=== PATIENT | male | born 1970 | race Caucasian/White ===

== ENCOUNTER 2022-05-16 10:19 | Outpatient (CLI) | payer OTHER, SELFPAY ==
[2022-05-16 14:33] LABS: Chloride* 100 mmol/L (96-114); Potassium* 4.3 mmol/L (3.6-5.1); Sodium* 138 mmol/L (135-149)
[2022-05-16 14:35] LABS: Cholesterol* 200 mg/dL (90-199); Estimated Glomerular Filt Rate 91 ml/min
[2022-05-16 14:36] LABS: Blood Urea Nitrogen* 16 mg/dL (7-30); Calcium* 9.6 mg/dL (8.4-10.6); Carbon Dioxide* 28 mmol/L (20-32); Glucose* 179 mg/dL (60-115); HDL Cholesterol* 31 mg/dL (>=40); LDL Cholesterol Calculated 81 mg/dL (<100)
[2022-05-16 14:59] LABS: PSA Screen* 0.42 ng/mL (0.10-4.00)
[2022-05-16 15:06] LABS: Triglycerides* 441 mg/dL (40-149)
[2022-06-18 09:24] LABS: Hemoglobin A1C* 6.89 % (0-5.6)
== END 2022-05-16 10:20 | disposition home or self-care (01) ==
PROVIDERS: PCP Family Medicine; Visit Provider Family Medicine
DX: I10 Essential (primary) hypertension (principal); E78.5 Hyperlipidemia, unspecified; Z12.5 Encounter for screening for malignant neoplasm of prostate; R73.9 Hyperglycemia, unspecified
CPT/HCPCS: 80048; 80061; 84153

== ENCOUNTER 2022-06-18 09:04 | Outpatient (CLI) | payer OTHER, SELFPAY | END 2022-06-18 09:05 | disposition home or self-care (01) | LOC: FBOREF 06-21 09:26 | PROVIDERS: PCP Family Medicine; Visit Provider Family Medicine | DX: R73.09 Other abnormal glucose (principal); I10 Essential (primary) hypertension; E78.5 Hyperlipidemia, unspecified | CPT/HCPCS: 83036 ==

== ENCOUNTER 2022-09-21 08:00 | Outpatient (CLI) | payer OTHER, SELFPAY ==
[2022-09-21 11:36] LABS: Cholesterol* 200 mg/dL (90-199)
[2022-09-21 11:37] LABS: HDL Cholesterol* 30 mg/dL (>=40); LDL Cholesterol Calculated 114 mg/dL (<100); Triglycerides* 280 mg/dL (40-149)
== END 2022-09-21 08:01 | disposition home or self-care (01) ==
LOC: NFLDREF 08:01
PROVIDERS: PCP Family Medicine; Visit Provider Family Medicine
DX: E78.5 Hyperlipidemia, unspecified (principal)
CPT/HCPCS: 80061

== ENCOUNTER 2023-07-01 09:08 | Outpatient (CLI) | payer OTHER, SELFPAY ==
[2023-07-01 10:02] LABS: Cholesterol* 207 mg/dL (90-199); HDL Cholesterol* 35 mg/dL (>=40); LDL Cholesterol Calculated 79 mg/dL (<100)
[2023-07-01 10:07] LABS: Triglycerides* 463 mg/dL (40-149)
[2023-07-04 08:18] LABS: Chloride* 99 mmol/L (96-114); Potassium* 4.1 mmol/L (3.6-5.1); Sodium* 139 mmol/L (135-149)
[2023-07-04 08:21] LABS: Anion Gap 11 mEq/L (7-15); Carbon Dioxide* 29 mmol/L (20-32); Creatinine* 0.8 mg/dL (0.5-1.5); Estimated Glomerular Filt Rate 106 ml/min
[2023-07-04 08:22] LABS: Blood Urea Nitrogen* 16 mg/dL (7-30); Glucose* 122 mg/dL (60-115)
== END 2023-07-01 09:09 | disposition home or self-care (01) ==
PROVIDERS: PCP Family Medicine; Visit Provider Family Medicine
DX: E78.5 Hyperlipidemia, unspecified (principal); Z11.9 Encounter for screening for infectious and parasitic diseases, unspecified; Z13.9 Encounter for screening, unspecified
CPT/HCPCS: 36415; 80048; 80061; 86480

== ENCOUNTER 2023-08-21 08:29 | Day surgery (SDC) | payer OTHER, SELFPAY ==
[2023-08-21] VITALS (7 sets, daily range): BP systolic 123–140; BP diastolic 72–92; PULSE 62–68; RESP 16; TEMP 36.5; O2SAT 97–99
[2023-08-21] MEDS: BUPIVACAINE 0.5% 30 ML INJECTION (09:00)
[2023-08-21] MEDS: NEOMYCIN/BACITRACIN/POLYMYXIN B 1 APPLIC TOPICAL (09:32)
--- NOTE | 2023-08-21 09:37 | P.ORPRC_ITS ---
Procedure Note Date of procedure: 08/21/23 Procedure: PREOPERATIVE DIAGNOSIS: 1. Right recurrent carpal tunnel syndrome POSTOPERATIVE DIAGNOSIS: 1. Right recurrent carpal tunnel syndrome PROCEDURE: 1. Right revision open carpal tunnel release SURGEON: Jayden Greene MD. RAWHIDE BONE ROLLER: Wenceslao Gonzalez PA-C ANESTHESIA: Local anesthetic (50:50 mixture of 2 % lidocaine with epi and 0.5% marcaine plain) - 10ml total IMPLANTS: None EBL: 2 mL TOURNIQUET: None COMPLICATIONS: None evident INDICATIONS: The patient is a pleasant 52-year-old male who underwent right endoscopic carpal tunnel release approximately 2004. He had good resolution of symptoms initially. Unfortunately, his symptoms have returned. He now experiences right hand numbess/tingling affecting the radial 3.5 digits for multiple months, especially the thumb and near complete numbness of the thumb tip continuously. It has progressively gotten worse. Nonoperative management has been tried and failed, and therefore surgery was recommended. DESCRIPTION OF PROCEDURE: Following a thorough discussion of risks, benefits, and alternatives consent was obtained and the operative extremity was marked. The patient was brought to the operating room and placed supine on the operating table. Local anesthesia induction was undertaken in preop holding. No antibiotics were administered as this was planned to be a local case only. Proper time-out was performed identifying proper patient, site, and procedure. The operative extremity was prepped and draped in the appropriate sterile fashion using ChloraPrep. Of note, the previous endoscopic transverse incision through the distal wrist crease appeared healthy without disruption. An incision was made in line with the radial border of the ring finger beginning 1 cm distal to the distal wrist crease and progressing for another 2.5cm distal. Caution was taken to stay proximal to Acosta's cardinal line. Sharp incision through the skin, subcutaneous tissue, and palmar fascia was performed. The thenar musculature was bluntly elevated off the transverse carpal ligament. The ligament was directly visualized, and divided sharply with a 15 blade. This was released from its most proximal to the most distal extent. Metzenbaum scissor was also utilized to release the fascia extension proximally. For this part had extra thickened tissue consistent with the previous surgery. We confirmed complete release of the transverse carpal ligament. Closure was performed with 4-O nylon in interrupted fashion. Soft dressings were applied, and the patient was transferred to the recovery room in stable condition. PLAN: 1. Encourage elevation of the operative extremity. 2. Range of motion of the fingers and hand/wrist as tolerated. 3. Ibuprofen/acetaminophen as needed for pain control. 4. Follow up with PA visit or nurse visit in 12-16 days for wound check and suture removal.
== END 2023-08-21 09:55 | disposition home or self-care (01) ==
PROVIDERS: PCP Family Medicine; Visit Provider Orthopaedic Surgery Sports Medicine
PROC: (CPT 64721; principal; 2023-08-21 09:30)
DX: G56.01 Carpal tunnel syndrome, right upper limb (principal)
CPT/HCPCS: 64721; J0665

== ENCOUNTER 2024-03-30 08:19 | Outpatient (CLI) | payer OTHER, SELFPAY | END 2024-03-30 08:20 | disposition home or self-care (01) | PROVIDERS: PCP Family Medicine; Visit Provider Family Medicine | DX: Z01.84 Encounter for antibody response examination (principal) | CPT/HCPCS: 86706; 86735; 86762; 86765 ==

== ENCOUNTER 2024-06-24 07:05 | Outpatient (CLI) | payer OTHER, SELFPAY ==
--- NOTE | 2024-06-24 07:15 | MR_ITS ---
[address] [address] Phone:?[phone] Fax:?[phone] Referring Physician Information: Alf Jhaveri M.D. [address] [facility] [address] Phone:?[phone] Fax:?[phone] Patient:AriesRuyd Moura D.O.B:?1970 Sex:?Male Phone:?[phone] [facility] MRN:?[id number] Exam Date:?06/24/2024 EXAM: MRI of the LEFT KNEE, without contrast CLINICAL HISTORY: Ongoing left knee pain. Evaluate for medial meniscal tear and impingement. COMPARISONS: MRI 05/25/2015. TECHNICAL: MR sequences of the left knee: sagittals: PD, PDFS coronals: PD, STIR axials: PD, T2 FS CONTRAST: None SEDATION: None FINDINGS: Bones: No fracture, bone marrow contusion, or other suspicious bone marrow signal abnormality. 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 Extensive grade II chondromalacia over the patella, mildly to moderately progressed compared to previous MRI 05/25/2015. Retinacula: The medial and lateral retinacula are intact. Fat pads: The infrapatellar, quadriceps, and prefemoral fat pads are unremarkable. Knee joint: Effusion: Physiologic amount of joint fluid. Popliteal cyst: None. Intra-articular bodies: None. Posteromedial corner: The semimembranosus and pes anserine tendons are intact. Medial compartment: Medial meniscus: Intact. Cartilage: 1.5 x 1.5 cm area of grade II to III chondromalacia over the weight- bearing portion of the medial femoral condyle, mildly to moderately progressed compared to previous MRI 05/25/2015. Lateral compartment: Lateral meniscus: Intact. Cartilage: 1.0 cm in AP dimension by 0.3 cm in transverse dimension area of near full-thickness chondral loss over the posterior weightbearing portion of the lateral femoral condyle, new compared to previous MRI 05/25/2015. Ligaments: Anterior cruciate ligament: Intact. Posterior cruciate ligament: Intact. Medial collateral ligament: Intact. Posterior oblique ligament: Intact. Fibular collateral ligament: Intact. Posterolateral corner: The distal biceps femoris tendon, iliotibial band, popliteus tendon, popliteus muscle, popliteofibular ligament, and arcuate ligament are intact. Extensor mechanism: Patellar tendon: Intact. Quadriceps tendon: Intact. IMPRESSION: 1. 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 Extensive grade II chondromalacia over the patella, mildly to moderately progressed compared to previous MRI 05/25/2015. 2. 1.5 x 1.5 cm area of grade II to III chondromalacia over the weight-bearing portion of the medial femoral condyle, mildly to moderately progressed compared to previous MRI 05/25/2015. 3. 1.0 x 0.3 cm area of near full-thickness chondral loss over the posterior weightbearing portion of the lateral femoral condyle, new compared to previous MRI 05/25/2015. 4. No ligamentous or meniscal pathology of the left knee. RCB Electronically signed on 06/30/2024 11:25:00 AM by Ron Mcguire M.D.
== END 2024-06-24 07:06 | disposition home or self-care (01) ==
LOC: MRI 07:06
PROVIDERS: PCP Family Medicine; Visit Provider Orthopaedic Surgery
DX: M25.562 Pain in left knee (principal); M22.42 Chondromalacia patellae, left knee
CPT/HCPCS: 73721

== ENCOUNTER 2024-12-29 15:26 | Outpatient (CLI) | payer OTHER, SELFPAY | END 2024-12-29 15:27 | disposition home or self-care (01) | LOC: FBOREF 15:28 | PROVIDERS: PCP Family Medicine; Visit Provider Family Medicine | DX: E78.5 Hyperlipidemia, unspecified (principal); I10 Essential (primary) hypertension; E11.9 Type 2 diabetes mellitus without complications; Z12.5 Encounter for screening for malignant neoplasm of prostate | CPT/HCPCS: 80048; 80061; 84460; 85025; G0103 ==

== ENCOUNTER 2025-04-11 10:21 | Emergency (ER) | payer OTHER, SELFPAY ==
[2025-04-11] VITALS (10 sets, daily range): BP systolic 90–129; BP diastolic 55–84; PULSE 60–68; RESP 8–21; TEMP 36.8; O2SAT 93–98; BMI 30.7
--- OUTSIDE RECORDS SUMMARY | 2025-04-11 10:23 | XMS_ITS | Clinical Summary ---
Author Organization [facility] Address [facility] [place] [address] Care Team Providers Care Pipe Layer Name Role Phone New Palacio MD Primary Care Provider + Allergies Active Allergy Reactions Criticality Noted Date Comments Cefazolin Anaphylaxis 07/11/2009 Medications cetirizine (ZYRTEC) 10 mg tabletIndications :seasonal allergic rhinitis Take 10 mg by mouth once daily. Indications: SEASONAL ALLERGIC RHINITIS Active omeprazole (PRILOSEC) 20 mg Delayed-Release capsule Take 1 capsule by mouth 2 times daily before meals. 200 capsule 4 03/25/2015 10:30 AM CDT 5 Active losartan-hydrochl orothiazide (HYZAAR) 100-12.5 mg tabletIndications :Hypertension TAKE 1 TABLET BY MOUTH EVERY DAY 90 tablet 8 Active clobetasol 0.05% (TEMOVATE 0.05% OINTMENT) 0.05 % ointmentIndicatio ns:Lichen planus Apply topically to affected area(s) 2 times daily. 1 Tube 1 8 Active amLODIPine (NORVASC) 5 mg tabletIndications :Essential hypertension Take 1 tablet by mouth once daily. 30 tablet 12 8 Active Active Problems Problem Noted Date Diagnosed Date Hypertension 03/27/2017 Acid reflux 08/17/2014 Esophageal dysphagia 08/17/2014 Umbilical hernia 07/27/2011 Carpal tunnel syndrome 07/11/2009 Hyperlipidemia 07/11/2009 Resolved Problems Problem Noted Date Diagnosed Date Resolved Date Elevated BP 07/27/2011 03/27/2017 Immunizations Immunization Administration Dates Next Due MMR 10/16/1991 Td (Age >=7 Years) 08/26/2000,10/16/1991 Tdap 07/27/2011 Yellow Fever 07/24/2011 Family History Medical History Relation Name Comments Hyperlipidemia Brother 2 Matt Hypertension Brother 2 Matt Diabetes Father Lei Hypertension Father Lei Heart Disease Paternal Grandfather Diabetes Paternal Grandmother Relation Name Status Comments Brother 1 Alive x2 Brother 2 Matt Father Lei Alive Maternal Grandfather Maternal Grandmother Mother Alive Paternal Grandfather Alive Paternal Grandmother Social History Tobacco Use Types Packs/Day Years Used Date Smoking Tobacco: Never Smokeless Tobacco: Never Alcohol Use Standard Drinks/Week Comments Yes 0 (1 standard drink = 0.6 oz pur e alcohol) Social Sex and Gender Information Value Date Recorded Sex Assigned at Not on file 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 Gender Identity Not on file Sexual Orientation Not on file Occupation Industry Job Start Date Job End Date [employer] Not on file Not on file Not on file Obstetrics History Last Filed Vital Signs Vital Sign Reading Time Taken Comments Blood Pressure 140/80 08/04/2018 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 Pulse 64 08/04/2018 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 Temperature 36.4 C (97.6 F) 08/04/2018 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 Respiratory Rate 16 08/04/2018 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 Oxygen Saturation 99% 08/05/2014 1:20 PM MULCHER OPERATOR Inhaled Oxygen Concentration - - Weight 110 kg (242 lb 9.6 oz) 08/04/2018 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 Height 180.3 cm (5' 11) 08/04/2018 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 Body Mass Index 33.84 08/04/2018 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 Plan of Treatment Health Maintenance Due Date Last Done Comments HIV for age 15-65 1985 Hepatitis C screening for age 18-79 1988 Hepatitis B series for 19+ ( 1 of 3 - 19+ 3-dose series) 1989 Colonoscopy through age 75 2015 Depression screening for age 12+ 03/22/2018 03/22/20 17 BMI (ht and wt on same day) for age 18+ 08/04/2019 08/04/2018, 03/22/2017 Pneumococcal series for age 50+ (1 of 1 - PCV) 2020 Zoster (shingles) series for age 50+ (1 of 2) 2020 Tetanus booster 07/27/2021 07/27/2011, 08/2000, 10/16/1991 Lipids for age 45-75 03/22/2022 03/22/2017, 07/11/20 09 COVID-19 vaccine series (1 - 2023- season) 2024 Influenza Vaccine (#1) 2025 Procedures Procedure Name Priority Date/Time Associated Diagnosis Comments LIPID PANEL W REFLEX MEASURED LDL Routine 03/22/2017 10:07 AM CDT Hypertension from Last 3 Months or Most Recently Relevant to Health Maintenance Results * (ABNORMAL) LIPID PANEL W REFLEX MEASURED LDL (03/22/2017 10:07 AM CDT) CHOLESTEROL,TOTAL 212(H) 100 - 199 mg/dL 03/22/2017 11:14 AM CDT [facility] TRIGLYCERIDES 349(H) <150 mg/dL 03/22/2017 11:14 AM CDT [facility] HDL CHOLESTEROL 32(L) >40 mg/dL 7 11:14 AM CDT [facility] NON-HDL CHOLESTEROL 180(H) <145 mg/dl 03/22/2017 11:14 AM CDT [facility] CHOL/HDL RATIO 6.63(H) <4.50 03/22/2017 11:14 AM CDT [facility] LDL CHOLESTEROL 110 <=130 mg/dL 03/22/2017 11:14 AM CDT [facility] PATIENT STATUS NOT GIVEN 03/22/2017 11:14 AM CDT [facility] Blood BLOOD SPECIMEN / Unknown Venipuncture / Unknown 03/22/2017 10:07 AM CDT 03/22/2017 10:07 AM CDT us New Palacio MD CHEMISTRY Final Re sult [facility] [address] [place] [address] from Last 3 Months or Most Recently Relevant to Health Maintenance Insurance [address] [id number] [address] [id number] [place] [address] WORK[employer] Advance Directives * Full Code (Latest Code Status on File) Date Activated Date Inactivated Comments 08/05/2014 11:43 AM 08/05/2014 4:17 PM Care Teams Pipe Layer Relationship Specialty Start Date End Date New Palacio MD [address] [place] [address] PCP - General Family Practice 09/26/22
--- NOTE | 2025-04-11 10:24 | ED_ITS ---
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 He was found lying in the hallway. He is pale and diaphoretic. He has a past medical history of GERD, hyperlipidemia, hypertension, type 2 diabetes per his medical record. Per medical record current medications include aspirin 81 mg, losartan/hydrochlorothiazide, metformin, rosuvastatin, doctors epic tide, omeprazole, cetirizine. 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 He was on due to this morning. He recalls being in his usual state of health lately. No new medications. No recent illnesses. No vomiting or diarrhea. This morning he wa s in the bathroom and had a large satisfactory bowel movement that was not black or bloody. While on the toilet he did start to feel a little bit lightheaded and felt like his heart was racing. He was worried he might pass out so he got off the toilet she tried to get out into the hallway to get someone to help him out. He recalls moving on in the hallway. He thinks his heart was probably racing but he was not sure if he was able to count his pulse or not. The next thing he recalls is waking up on the floor. He knows that he had fallen because some of the items in his pocket had fallen out. However he was not injured in the fall. He had no other symptoms. No chest pain. No shortness of breath. No back pain. He has no recent swelling in his legs. No abdominal pain. He has no r ecent black or bloody stools. No recent fever or illnesses. He has no pain or injury from the fall. No signs of head trauma. No headache. No facial or dental trauma. He did not bite his tongue. He was not incontinent of urine or stool. He has no other injury or bruises from falling. He was noted to be pale by nursing staff when he 1st was in the hallway but now that he is here in the ER his color has returned he feels completely back to normal. Related Data Home Medications ?Medication ?Instructions ?Recorded ?Confirmed aspirin 81 mg tablet,delayed 81 mg PO QDAY 05/16/22 release cetirizine 10 mg tablet (Zyrtec) 10 mg PO QDAY 4 12/29/24 Previous Rx's ?Medication ?Instructions ?Recorded metformin 500 mg tablet,extended 1,000 mg (2 x 500 mg) PO QDAY #180 12/29/24 release 24 hr tabs omeprazole 20 mg capsule,delayed 20 mg PO QDAY #90 cap s 12/29/24 release tirzepatide 2.5 mg/0.5 mL 2.5 mg (0.5 mL) subcut QWEEK #2 mL 12/29/24 subcutaneous pen injector (Mounjaro) losartan 100 1 tab PO QDAY #90 tabs 03/15 mg-hydrochlorothiazide 25 mg tablet rosuvastatin 5 mg tablet (Crestor) 5 mg PO QDAY #90 ta bs 03/15/25 Allergies Allergy/AdvReac Type Severity Reaction Status Date / Time cefazolin Allergy Mild EDEMA Verified 12/29/24 15:20 FLYNN Inhibitors AdvReac Mild Cough Verified 12/29/24 15:20 [facility] Medical History (Updated 04/11/25 @ 13:34 by Braden Florian MD) Mixed hyperlipidemia ?E78.2 - Mixed hyperlipidemia (ICD-10) Primary hypertension ?I10 - Essential (primary) hypertension (ICD-10) Type 2 diabetes mellitus, without long-term current use of insulin ?E11.9 - Type 2 diabetes mellitus without complications (ICD-10) Infectious diarrhea in adult patient ?A09 - Infectious gastroenteritis and colitis, unspecified (ICD-10) Gastroesophageal reflux disease ?K21.9 - Gastro-esophageal reflux disease without esophagitis (ICD-10) Surgical History History of incision and drainage (05/14/17) ?Z98.890 - Other specified postprocedural states (ICD-10) History of carpal tunnel surgery of right wrist (08/21/23) ?Z98.890 - Other specified postprocedural states (ICD-10) History of vasectomy ?Z98.52 - Vasectomy status (ICD-10) History of umbilical hernia repair ?Z98.890 - Other specified postprocedural states (ICD-10) ?Z87.19 - Personal history of other diseases of the digestive system (ICD-10) History of foot surgery (08/08/18) ?Z98.890 - Other specified postprocedural states (ICD-10) Family History Father Heart disease Type 2 diabetes mellitus Other Celiac disease Social History (Updated 12/29/24 @ 15:16 by Nereida Ramsay ~ RMA, RMA) Narrative: , two kids, two step kids, nonsmoker, 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, 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[employer] What is your current living situation?: I presently have a place to live Problems where you live: no known problems In the past 12 months, utilities in danger of being shut off: no In past 12 months, lack of transportation kept you from medical appts, meetings, work, or getting things needed for daily living: no In the past 12 mos, have been you worried that your food would run out before you had money to buy more?: never true In the past 12 mos, the food you bought just didn't last and you didn't have money to buy more?: never true Smoking Status: Never smoker How often does anyone, including family, friends and others, physically hurt you : never How often does anyone, including family, friends and others, insult or talk down to you: never How often does anyone, including family, friends and others, threaten you with harm: never How often does anyone, including family, friends and others, scream or curse at you: never Exam Narrative: Exam Narrative: Constitutional: Appears well-developed and well-nourished. Alert. Conversant. Non toxic. HENT: Head: Atraumatic. No depressed skull fracture, Raccoon Eyes, Jeong's sign, or hemotympanum. Face normal. TMs normal Nose: Nose normal. Mouth/Throat: Oral mucosa is clear and moist. no trismus. Pharynx normal. Tonsils symmetric. No tonsillar enlargement, erythema, or exudate. Eyes: Conjunctivae normal. EOM normal. Pupils equal, round, and reactive to light. No scleral icterus. Neck: Normal range of motion. Neck supple. No tracheal deviation present. Cardiovascular: Normal rate, regular rhythm. No gallop. No friction rub. No murmur heard. Symmetric radial artery pulses Pulmonary/Chest: Effort normal. No stridor. No respiratory distress. No wheezes. No rales. No rhonchi . No tenderness. Abdominal: Soft. Bowel sounds normal. No distension. No mass. No tenderness. No rebound. No guarding. Musculoskeletal: No C, T, L-spine tenderness. RUE: Normal range of motion. No tenderness. No deformity LUE: Normal range of motion. No tenderness. No deformity RLE: Normal range of motion. No edema. No tenderness. No deformity LLE: Normal range of motion. No edema. No tenderness. No deformity Lymph: No cervical adenopathy. Neurological: Alert and oriented to person, place, and time. Normal strength. CN II-VII intact. No sensory deficit. GCS eye subscore is 4. GCS verbal subscore is 5. GCS motor subscore is 6. Normal coordination Skin: Skin is warm and dry. No rash noted. No pallor. Normal capillary refill. Psychiatric: Normal mood. Normal affect. Const: Vital Signs, click to edit/add: Vital Signs - 24 hr 04/11/25 10:25 04/11/25 10:30 04/11/25 11:00 Temperature 98.2 F Pulse Rate Pulse Rate [Pulse Oximeter] 68 67 68 Respiratory Rate 18 16 18 Blood Pressure Blood Pressure [Ri ght Upper Arm] 128/84 129/82 127/83 Pulse Oximetry 97 97 95 [facility] Room Air Room Air 04/11/25 11:30 04/11/25 12:00 04/11/25 12:11 Temperature Pulse Rate Pulse Rate [Pulse Oximeter] 63 60 62 Respiratory Rate 16 14 16 Blood Pressure Blood Pressure [Ri ght Upper Arm] 120/80 90/55 L 115/72 Pulse Oximetry 94 96 96 [facility] Room Air Room Air 04/11/25 12:30 04/11/25 13:11 04/11/25 13:14 Temperature Pulse Rate 62 61 Pulse Rate [Pulse Oximeter] 61 Respiratory Rate 16 21 8 L Blood Pressure 118/75 Blood Pressure [Ri ght Upper Arm] 113/77 Pulse Oximetry 96 94 98 [facility] Room Air 04/11/25 13:15 Temperature Pulse Rate 64 Pulse Rate [Pulse Oximeter] Respiratory Rate 17 Blood Pressure Blood Pressure [Ri ght Upper Arm] Pulse Oximetry 93 Oxygen Delivery Me thod Course Course ED Course: 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 Easily arousable and polite and conversant. Vital Signs Vital signs: Initial Vital Signs Temperature 98.2 F 04/11/25 10:25 Temperature Source Temporal Artery Scan 04/11/25 10:25 Pulse Rate 68 04/11/25 10:25 Respiratory Rate 18 04/11/25 10:25 Blood Pressure 128/84 04/11/25 10:25 Blood Pressure Mean 98 04/11/25 10:25 Blood Pressure Position Supine 04/11/25 10:25 Pulse Oximetry 97 04/11/25 10:25 Oxygen Delivery Method Room Air 04/11/25 10:25 Vital Signs Temperature 98.2 F 04/11/25 10:25 Pulse Rate 68 04/11/25 10:25 Respiratory Rate 18 04/11/25 10:25 Blood Pressure 128/84 04/11/25 10:25 Pulse Oximetry 97 04/11/25 10:25 Oxygen Delivery Method Room Air 04/11/25 10:25 Temperature 98.2 F 04/11/25 10:25 Pulse Rate 64 04/11/25 13:15 Respiratory Rate 17 04/11/25 13:15 Blood Pressure 118/75 04/11/25 13:14 Pulse Oximetry 93 04/11/25 13:15 Oxygen Delivery Method Room Air 04/11/25 13:14 Medical Decision Making MDM Narrative Medical decision making narrative: This patient presents for evaluation of a syncopal event that occurred in the hallway of the hospital. 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 He 1st started to feel little bit lightheaded while on the toilet having a bowel movement. Consider possible vasovagal event, however he does recall racing heart which raises concern for either a reflex tachycardia or possibly a cardiac arrhythmia.. No murmurs . Initial ECG shows normal sinus rhythm and no dysrhythmogenic abnormality such as WPW, prolonged QT, Brugada syndrome, and no ischemia. No symptoms/findings concerning for cardiac ischemia or ACS []. No headache or other neurologic symptoms to suggest subarachnoid , stroke . No reported seizure-like activity or postictal phase. No tongue biting, incontinence, or other symptoms at this was a seizure.. 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 A broad differential diagnosis was considered including SVT, Atrial fibrillation, ventricular arrhythmia, thyroid disease, acute electrolyte abnormality, drugs/medications, medication side effect, anemia, heart disease, PE, among others. Although he is not having any chest pain we did check D-dimer and it is normal. We also checked initial and 2 hour delta troponins and they are also normal. The workup and exam here in ED shows low risk for dangerous cause of the patient's syncope, and no risks factors to warrant admission. Clinical judgement suggests that supportive outpatient management is indicated. Zio patch placed here in the ER. Recommend follow up with his PCP. May need outpatient cardiac monitoring and echo.. Questions answered and return precautions given Lab Data Labs: Lab Results 04/11/25 04/11/25 Range/Units 10:55 13:05 WBC 6.68 (4.50-11.00) K/uL RBC 4.90 (4.30-5.90) m/uL Hgb 15.2 (13.5-17.5) gm/dL Hct 43.4 (37.0-53.0) % MCV 89 (80-100) fL MCH 31 (26-34) pg MCHC 35 (32-36) gm/dL RDW Coeff of Jay 11.9 (11.5-15.5) % Plt Count 225 (140-440) K/uL Neut % (Auto) 61.0 (42.0-72.0) % Lymph % (Auto) 24.7 (20-44) % [place] % (Auto) 10.8 (0.0-11.0) % Eos % (Auto) 3.1 (0.0-7.0) % Baso % (Auto) 0.1 (0.0-3.0) % Neut # (Auto) 4.07 (1.7-7.0) K/uL Lymph # (Auto) 1.65 (0.90-2.90) K/uL [place] # (Auto) 0.70 (0.00-0.90) K/UL Eos # (Auto) 0.21 (0.00-0.50) K/uL Baso # (Auto) 0.01 (0.00-0.30) K/uL Abs Immat Gran (auto) 0.02 (0.00-0.30) K/uL Imm/Tot Granulo (auto) 0.3 % D-Dimer Quant (PE/DVT) 0.06 (0.00-0.50) ug/ml Sodium 135 (135-149) mmol/L Potassium 3.8 (3.6-5.1) mmol/L Chloride 97 (96-114) mmol/L Carbon Dioxide 30 (20-32) mmol/L Anion Gap 8 (7-15) mEq/L BUN 12 (7-30) mg/dL Creatinine 0.9 (0.5-1.5) mg/dL Estimated Creat Clear 99.94 Estimated GFR 101 ml/min Glucose 146 H (60-115) mg/dL Calcium 9.3 (8.4-10.6) mg/dL TSH 3.640 (0.270-4.200) uIU/mL POC Troponin I 0.00 L 0.00 L (0.01-0.04) ng/ml ECG Data Attestation: I personally reviewed and interpreted this ECG as follows: Interpretation: Normal sinus rhythm Rate 65 MN 134 Normal QRS axis. No pathologic Q-waves. No ST segment elevation or depression. Nonspecific T-wave flattening lead 2, 3, AVF, V6 QT 382, QTC 397 Discharge Plan Discharge Clinical Impression: Syncope Patient Disposition: Home, Self-Care Condition: Stable Instructions: Syncope (DC) Additional Instructions: As we discussed, please return to the ER immediately if you have any concerns such as episodes of dizziness, any more episodes of fainting, palpitations, chest pain, trouble breathing, headache, or if you have any concerns. Please continue on your regular medications for now. Please follow-up with your regular doctor, Dr. Palacio, for recheck within the next 1-[address] a heart monitor (Zio patch) for you today. He will wear this for 7 days and then send it back. After you follow-up with your regular doctor, he can tell you the results of your Zio patch. Prescriptions: No Action aspirin 81 mg tablet,delayed release (DR/EC) 81 mg PO QDAY cetirizine [Zyrtec] 10 mg tablet 10 mg PO QDAY omeprazole 20 mg capsule,delayed release(DR/EC) 20 mg PO QDAY Qty: 90 3RF metformin 500 mg tablet extended release 24 hr 1,000 mg PO QDAY Qty: 180 3RF Mounjaro 2.5 mg/0.5 mL pen injector 2.5 mg subcut QWEEK Qty: 2 0RF Rx Instructions: Needs to get enrolled in the [facility] program rosuvastatin [Crestor] 5 mg tablet 5 mg PO QDAY Qty: 90 2RF losartan-hydrochlorothiazide 100-25 mg tablet 1 tab PO QDAY Qty: 90 2RF Follow Up/Referrals: New Palacio MD [Primary Care Provider, Family Practice] Stand Alone Forms: [facility] Info Instructions
[2025-04-11 11:08] LABS: Hematocrit 43.4 % (37.0-53.0); Hemoglobin* 15.2 gm/dL (13.5-17.5); Immature Granulocytes Abs Auto 0.02 K/uL (0.00-0.30); Immature Granulocytes Pct Auto 0.3 %; Lymphocytes Absolute Auto 1.65 K/uL (0.90-2.90); Mean Corpuscular HGB Conc 35 gm/dL (32-36); Mean Corpuscular Hemoglobin 31 pg (26-34); Mean Corpuscular Volume 89 fL (80-100); RDW Coefficient of Variation % 11.9 % (11.5-15.5); Red Blood Count 4.90 m/uL (4.30-5.90); White Blood Count* 6.68 K/uL (4.50-11.00)
[2025-04-11 11:12] LABS: Slide Review Reflex No
[2025-04-11 11:20] LABS: Troponin, Point-of-Care* 0.00 ng/ml (0.01-0.04)
[2025-04-11 11:25] LABS: Chloride* 97 mmol/L (96-114); Potassium* 3.8 mmol/L (3.6-5.1); Sodium* 135 mmol/L (135-149)
[2025-04-11 11:28] LABS: Blood Urea Nitrogen* 12 mg/dL (7-30); Creatinine* 0.9 mg/dL (0.5-1.5); Est. Creatinine Clearance* 99.94; Estimated Glomerular Filt Rate 101 ml/min
[2025-04-11 11:29] LABS: Anion Gap 8 mEq/L (7-15); Calcium* 9.3 mg/dL (8.4-10.6); Carbon Dioxide* 30 mmol/L (20-32); Glucose* 146 mg/dL (60-115)
[2025-04-11 11:52] LABS: D Dimer Quantitative* 0.06 ug/ml (0.00-0.50)
[2025-04-11 12:00] LABS: TSH With Reflex to FT4* 3.640 uIU/mL (0.270-4.200)
[2025-04-11 15:32] LABS: Troponin, Point-of-Care* 0.00 ng/ml (0.01-0.04)
== END 2025-04-11 14:11 | disposition home or self-care (01) ==
PROVIDERS: Emergency Provider Emergency Medicine; PCP Family Medicine
DX: R55 Syncope and collapse (principal)
CPT/HCPCS: 36415; 80048; 84443; 84484; 85025; 85379; 93005; 93246; 99283; 99284